=== PATIENT | male | born 1995 | race Caucasian/White ===

== ENCOUNTER 2020-01-01 12:30 | Emergency (ER) | payer OTHER, SELFPAY ==
[2020-01-01 12:38] VITALS: BP 117/62; PULSE 79; RESP 21; TEMP 36.8; O2SAT 99
--- NOTE | 2020-01-01 13:26 | ED.GENADULT ---
HPI - General Adult General Chief complaint: Extremity Problem,Nontraumatic Stated complaint: ingrown toenail Time Seen by Provider: 01/01/20 13:26 Source: patient and RN notes reviewed Mode of arrival: ambulatory Limitations: no limitations History of Present Illness HPI narrative: 24-year-old male presents with complaints of green-bloody drainage, redness, warmth, tenderness, and swelling to dorsal LT great toe for the past 7 days. Increase redness and warmth along with a busted blister after playing basketball yesterday per Tarik. No treatment. 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 Denies known injury or trauma. Denies radiation of tenderness, redness, or swelling. Denies immobility. No exacerbating factors. Denies foot, calf, or leg pain. Denies fever or chills. Denies nausea, vomiting, and abdominal pain. Tolerating po intake well. Remains active. Some parts of this dictation were generated by voice recognition software and may contain typographical and/or grammatical inaccuracies. Related Data Allergies Allergy/AdvReac Type Severity Reaction Status Date / Time No Known Allergies Allergy Verified 03/12/16 13:00 Review of Systems Review of Systems: Narrative: CONSTITUTIONAL: Denies fever, chills, sweats. EYES: Denies visual changes, redness, discharge. ENT: Denies rhinorrhea, congestion, sore throat, otalgia. CARDIOVASCULAR: Denies chest pain, palpitations, edema. RESPIRATORY: Denies dyspnea, wheezing, cough. GASTROINTESTINAL: Denies abdominal pain, nausea, vomiting, diarrhea. GENITOURINARY: Denies dysuria, hematuria, abnormal discharge. SKIN: Complains of green-bloody drainage, redness, warmth, tenderness, and swelling to dorsal LT great toe. MUSCULOSKELETAL: Denies acute back pain, joint pain, or myalgia. NEUROLOGIC: Denies numbness or focal weakness. PSYCHIATRIC: Denies anxiety or depression. All systems reviewed & are unremarkable except as noted in HPI and below. FOR[facility]LY [facility] Past Medical History Medical History (Updated 01/02/20 @ 10:03 by ADELSO Adamson) Anxiety Osteochondritis dissecans RT knee Surgical History Surgical History (Updated 01/01/20 @ 13:34 by ADELSO Adamson) History of knee surgery Right Family History Family History (Updated 01/01/20 @ 13:35 by ADELSO Adamson) Father Diabetes mellitus Mother Diabetes mellitus Social History Social History (Updated 01/01/20 @ 13:35 by ADELSO Adamson) Smoking status: Never smoker Second hand tobacco smoke exposure: No Alcohol intake: current Substance use: never Living arrangements: with family Occupation/Education: student Gender identity (if verbalized by the patient): Male Comments At time of signature, agree with nurse past medical, surgical, social, and family history. There is no relevant family history pertinent to the presenting complaint. Exam Narrative: Exam Narrative: GENERAL: This is a well-nourished, well-developed patient, in no apparent distress. HEAD: normocephalic, atraumatic. EYES: PERRL. Sclera clear/white. Vision is grossly intact. CARDIOVASCULAR: Regular rate and rhythm without murmurs, gallops, or rubs. RESPIRATORY: Clear to auscultation. Breath sounds equal bilaterally. No wheezes, rales, or rhonchi. GASTROINTESTINAL: Abdomen soft, non-tender, nondistended. Bowel sounds are active. No hepato-splenomegaly, or palpable masses. No guarding. SKIN: warm, intact except skin tear to dorsal area below toenail of LT great toe with moderate erythema, swelling, and warmth, no drainage. No suspicious lesions or rash, good texture and turgor. NEURO: awake, alert, and oriented to person, place and time. There were no obvious focal neurologic abnormalities. Steady gait EXTREMITIES: No clubbing, cyanosis, or edema. No joint tenderness, effusion, or edema noted. LT Great toe with moderate erythema, swelling, and tenderness on palpation and manipulation
== END 2020-01-01 13:43 | disposition home or self-care (01) ==
PROVIDERS: Emergency Provider Nurse Practitioner Family; PCP Family Medicine
DX: L03.032 Cellulitis of left toe (principal); F41.9 Anxiety disorder, unspecified
CPT/HCPCS: 99213; G0463